=== PATIENT | female | born 1955 | race Caucasian/White ===

== ENCOUNTER 2021-07-20 11:59 | Emergency (ER) | payer OTHER, SELFPAY ==
[2021-07-20 12:00] VITALS: BP 192/116; PULSE 97; RESP 20; TEMP 37.2; O2SAT 96; BMI 22.2
[2021-07-20 12:30] VITALS: BP 155/87; PULSE 75; RESP 20; O2SAT 95
[2021-07-20 12:35] LABS: Basophils # 0.1 K/mm3 (0-0.2); Basophils % 0.7 % (0.1-2.0); Chloride 97 mmol/L (98-107); Eosinophils # 0.2 K/mm3 (0.0-0.4); Eosinophils % 2.7 % (0.1-12.0); Hematocrit 38.5 % (37.0-47.0); Lymphocytes # 2.1 K/mm3 (0.7-4.5); Mean Corpuscular HGB Conc 33.7 g/dL (31.8-35.4); Mean Corpuscular Volume 97.9 fl (81-99); Mean Platelet Volume 7.8 fl (7.4-10.4); Monocytes # 0.4 K/mm3 (0.1-1.0); Monocytes % 5.5 % (1.7-9.3); Neutrophils # 4.4 K/mm3 (1.8-7.8); Platelet Count 359 K/mm3 (142-424); Potassium 4.4 mmoL/L (3.5-5.1); Red Blood Count 3.93 M/mm3 (4.20-5.40); Sodium 128 mmol/L (136-145); White Blood Count 7.1 K/mm3 (4.8-10.8)
[2021-07-20 12:37] LABS: Alanine Aminotransferase 18 U/L (12-78); Alkaline Phosphatase 91 U/L (38-126); Anion Gap 12.4 mEq/L (5-15); Aspartate Amino Transferase 43 U/L (14-36); Bilirubin,Total 0.3 mg/dl (0.2-1.3); Blood Urea Nitrogen 7 mg/dl (7-17); Carbon Dioxide 23 mmol/L (22.0-30.0); Creatinine Clearance Estimated 42 mL/min (50-200); Estimated Glomerular Filt Rate 159 ml/min (>60); GFR (African American) 192 ML/MIN (>60); Lipase 97 U/L (23-300)
[2021-07-20 12:38] LABS: Albumin Level 4.3 g/dl (3.5-5.0); Albumin/Globulin Ratio 1.5 (1.1-1.8); Calcium 8.5 mg/dl (8.4-10.2); Globulin 2.8 g/dL (1.3-3.2); Glucose 113 mg/dl (74-100); Total Protein,Serum 7.1 g/dl (6.3-8.2)
--- NOTE | 2021-07-20 12:40 | HMH.EDABDPAI ---
ED Disposition Clinical Impression: Rectus sheath hematoma Qualifiers: Encounter type: initial encounter Qualified Code(s): S30.1XXA - Contusion of abdominal wall, initial encounter Disposition: Xfer Intermediate Care Fac Condition on Discharge: Serious Instructions: DI for Acute Abdominal Pain Referrals: Nadir Holguin MD [Primary Care Provider] - - Critical Care Critical Care Time: No Attestation: On 07/20/21, the high probability of a clinically significant, sudden or life threatening deterioration of the following system(s) required my full and direct attention, intervention and personal management. The time I documented below is in addition to time spent performing reported procedures but includes the following listed in this critical care notation. Medical Decision Making - Medical Records Medical records reviewed: Yes: I reviewed the patient's medical records. - Elmer Inquiry Pt receiving controlled substance: Yes Elmer was queried for this patient: Yes Reference #:: [id number] Risks and benefits of using a controlled substance: were discussed with pt by me Vital Signs: 07/20/21 12:00 07/20/21 12:30 07/20/21 13:00 Temperature 99.0 F Temperature Source Oral Pulse Rate 75 69 Pulse Rate [Left Radial] 97 H Respiratory Rate 20 20 20 Blood Pressure 155/87 H 132/80 Blood Pressure [Right Arm] 192/116 H Blood Pressure Mean 109 106 Blood Pressure Mean [Right Arm] 141 Blood Pressure Source [Right Arm] Automatic Cuff Blood Pressure Position [Right Arm] Sitting 02 Sat by Pulse Oximetry 96 95 95 Oxygen Delivery Method Room Air 07/20/21 13:45 Temperature Temperature Source Pulse Rate 77 Pulse Rate [Left Radial] Respiratory Rate Blood Pressure 192/116 H Blood Pressure [Right Arm] Blood Pressure Mean Blood Pressure Mean [Right Arm] Blood Pressure Source [Right Arm] Blood Pressure Position [Right Arm] 02 Sat by Pulse Oximetry 96 Oxygen Delivery Method - Lab Data Lab Results 07/20/21 12:15: WBC 7.1, RBC 3.93 L, Hgb 13.0, Hct 38.5, MCV 97.9, MCH 33.0 H, MCHC 33.7, RDW 13.0, Plt Count 359, MPV 7.8, Neut % (Auto) 62.0, Lymph % (Auto) 29.0, [place] % (Auto) 5.5, Eos % (Auto) 2.7, Baso % (Auto) 0.7, Neut # (Auto) 4.4, Lymph # (Auto) 2.1, [place] # (Auto) 0.4, Eos # (Auto) 0.2, Baso # (Auto) 0.1 07/20/21 12:15: Sodium 128 L, Potassium 4.4, Chloride 97 L, Carbon Dioxide 23, Anion Gap 12.4, BUN 7, Creatinine 0.40 L, Estimated Creat Clear 42, Estimated GFR 159, Est GFR ( Amer) 192, Glucose 113 H, Calcium 8.5, Total Bilirubin 0.3, AST 43 H, ALT 18, Alkaline Phosphatase 91, Troponin I < 0.01, Total Protein 7.1, Albumin 4.3, Globulin 2.8, Albumin/Globulin Ratio 1.5, Lipase 97 07/20/21 12:15: PT 11.4, INR 1.01, APTT 29.7 07/20/21 13:20: Urine Color Yellow, Urine Appearance Clear, Urine pH 6.0, Ur Specific [place] <= 1.005, Urine Protein Negative, Urine Glucose (UA) Negative, Urine Ketones Negative, Urine Blood 1+, Urine Nitrate Negative, Urine Bilirubin Negative, Urine Urobilinogen 0.2, Ur Leukocyte Esterase Negative, Urine RBC 3-5, Urine WBC Occasional, Ur Squamous Epith Cells 3-5, Urine Bacteria Trace 07/20/21 14:10: Lactate 1.2 Result diagrams: 07/20/21 12:15 07/20/21 12:15 Orders (Tests/Meds): ED MEDICATIONS Discontinued Medications Generic Name Dose Route Start Last Admin Trade Name Dipakq PRN Reason Stop Dose Admin Hydromorphone HCl 1 mg 07/20/21 14:56 07/20/21 15:05 Hydromorphone 2mg/Ml Syringe IV 07/20/21 14:57 1 mg ONCE ONE Administration Iopamidol 100 ml 07/20/21 13:28 07/20/21 13:29 Iopamidol-370 (76%);100ml Bottle IV 07/20/21 13:29 100 ml ONCE ONE Administration Morphine Sulfate 4 mg 07/20/21 12:08 07/20/21 12:18 Morphine 4mg/Ml Syringe IV 07/20/21 12:09 4 mg ONCE ONE Administration Morphine Sulfate 4 mg 07/20/21 13:00 07/20/21 13:07 Morphine 4mg/Ml Syringe IV 07/20/21 13:01 4 mg ONCE ONE Administration Ondansetro
[2021-07-20 12:54] LABS: Troponin I < 0.01 ng/ml (0.00-0.034)
[2021-07-20 13:00] VITALS: BP 132/80; PULSE 69; RESP 20; O2SAT 95
--- NOTE | 2021-07-20 13:01 | CT_ITS ---
FINAL REPORT TECHNIQUE: Pre-and postcontrast images of the abdomen and pelvis were performed by computed tomography. Extensive 3-D reconstruction images were performed. A CTA was performed. This study was performed with techniques to keep radiation doses as low as reasonably achievable (ALARA). Individualized dose reduction techniques using automated exposure control or adjustment of mA and/or kV according to the patient''s size were employed. 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 Precontrast images demonstrate no evidence of nephrolithiasis. No adrenal masses are identified. A small mass is seen in the left hepatic lobe which may represent cyst or hemangioma. There is a 14 mm mass of the lateral right kidney which does not appear to represent a simple cyst. Findings may represent complex cyst versus neoplasm. The spleen and pancreas are unremarkable. There is an acute left rectus hematoma measuring 11.5 x 9.3 x 5.5 cm without evidence of active bleeding. There are postoperative changes in the pelvis. CTA: The abdominal aorta is proper caliber. An SMA stent is in place. The celiac axis, and YING are patent. There is no significant stenosis or calcification. The renal arteries are patent bilaterally. Iliac arteries are unremarkable. IMPRESSION: Acute left rectus hematoma with active bleeding. These findings were discussed with Dr. Lyon, in the ER at 2:51 p.m. 14 mm mass lateral right kidney, not a simple cyst. Findings could represent complex cyst versus neoplasm. Recommend renal mass protocol CT or MRI for further evaluation. Reviewed, Interpreted and Dictated by Rafael Lima III, MD Transcribed by Samaria Payne Authenticated by Rafael Lima III, MD on 07/20/2021 03:18:12 PM [facility]
[2021-07-20 13:30] LABS: Microscopic, Urine URINE MICROSCOPIC (MICROSCOPIC)
[2021-07-20 13:31] LABS: Appearance,Urine CLEAR (Clear); Bilirubin,Urine Negative (Negative); Blood, Urine 1+ (Negative); Color,Urine YELLOW (Yellow); Glucose,Urine (UA) Negative (Negative); Ketones,Urine Negative (Negative); Leukocyte Esterase,Urine Negative (Negative); Nitrate,Urine Negative (Negative); Protein,Urine Negative (Negative); Specific Gravity, Urine <= 1.005 (1.005-1.030); Urobilinogen,Urine 0.2 EU/dl (0.2)
[2021-07-20 13:45] VITALS: BP 192/116; PULSE 77; O2SAT 96
[2021-07-20 13:47] LABS: Bacteria,Urine Trace /lpf; WBC,Urine Occasional #/hpf (0-3)
[2021-07-20 14:30] LABS: Lactic Acid 1.2 mmol/L (0.7-2.1)
--- NOTE | 2021-07-20 14:52 | PC.NURSE ---
ELENI calling for Dr Lyon
--- NOTE | 2021-07-20 15:07 | PC.NURSE ---
Radha Cheung, RN at
[2021-07-20 15:17] LABS: Activated Partial Thrombo Time 29.7 seconds (22.8-30.6); INR 1.01 (0.9-1.1); Prothrombin Time 11.4 seconds (10.1-12.5)
--- NOTE | 2021-07-20 15:57 | PC.NURSE ---
[facility] called, they will call back
--- NOTE | 2021-07-20 16:40 | PC.NURSE ---
ED MD on phone with MDs at this time
--- NOTE | 2021-07-20 17:36 | PC.NURSE ---
pt accepted at , Dr Griffiths
--- NOTE | 2021-07-20 17:37 | PC.NURSE ---
Requested for Rad to power share images to [facility]
--- NOTE | 2021-07-20 17:57 | PC.NURSE ---
REport given to Autumn Singletary RN [facility]
[2021-07-20 18:10] LABS: Coronavirus 19, PCR Not Detected (NotDetected); Influenza A, PCR Not Detected (NotDetected); Influenza B, PCR Not Detected (NotDetected)
[2021-07-20 18:26] VITALS: BP 101/77; PULSE 88; O2SAT 94
[2021-07-20 20:44] VITALS: BP 109/57; PULSE 88; RESP 20; TEMP 37.1; O2SAT 98
== END 2021-07-20 20:45 ==
PROVIDERS: Emergency Provider Emergency Medicine; PCP Internal Medicine Adolescent Medicine
DX: S30.1XXA Contusion of abdominal wall, initial encounter (principal); N28.89 Other specified disorders of kidney and ureter; Z20.822 Contact with and (suspected) exposure to COVID-19
CPT/HCPCS: 74174; 80053; 81001; 83605; 83690; 84484; 85025; 85610; 85730; 96374; 96375; 96376; 99285; C9803; J2405; Q9967; U0003; U0005

== ENCOUNTER → 2021-12-29 13:34 | Outpatient (POV) | payer OTHER, SELFPAY | PROVIDERS: Visit Provider Dermatology | DX: Z00.00 Encounter for general adult medical examination without abnormal findings (principal) ==

== ENCOUNTER → 2022-07-14 13:15 | Outpatient (CLI) | payer OTHER, MEDICARE, SELFPAY ==
--- NOTE | 2022-07-14 13:23 | XR_ITS ---
FINAL REPORT CLINICAL HISTORY: low back pain FINDINGS: THORACIC SPINE Two views were obtained. There is no acute fracture. There is a mild chronic T12 compression fracture. There is dextroscoliosis. There are moderate degenerative changes with osteophyte formation. There is no soft tissue abnormality. IMPRESSION: Mild chronic T12 compression fracture. Moderate degenerative changes with no acute bony abnormality. LUMBAR SPINE Five views of the lumbar spine were obtained. There is a moderate chronic L1 compression fracture. There is fusion at L4-5. There is no acute fracture. There is no malalignment. There is leftward curvature. There are mild and moderate degenerative changes. There is no soft tissue abnormality. IMPRESSION: Moderate chronic L1 compression fracture. Mild and moderate degenerative changes with no acute bony abnormality. Reviewed, Interpreted and Dictated by Rafael Lima III, MD Transcribed by Giselle Carr Authenticated and [facility]
== END ==
PROVIDERS: PCP Internal Medicine Adolescent Medicine; Visit Provider Internal Medicine Adolescent Medicine
DX: M54.50 Low back pain, unspecified (principal); M54.6 Pain in thoracic spine
CPT/HCPCS: 72084

== ENCOUNTER → 2022-09-28 12:42 | Outpatient (CLI) | payer OTHER, MEDICARE, SELFPAY ==
--- NOTE | 2022-09-28 12:54 | XR_ITS ---
FINAL REPORT CLINICAL HISTORY: FELL TUESDAY & RIB PAIN ON LEFT SIDE FINDINGS: A single view of the chest with 3 views of the left ribs were obtained. There is no acute cardiopulmonary process. No pneumothorax is identified. No acute fracture or dislocation is identified. There is mild dextroscoliosis of the thoracic spine, as well as prior cervical fusion instrumentation, a left shoulder arthroplasty, and lumbar orthopedic hardware. IMPRESSION: No acute process. Reviewed, Interpreted and Dictated by Rafael Lima III, MD Transcribed by Tatiana Sagastume Authenticated and . [facility]
--- NOTE | 2022-09-28 12:54 | XR_ITS ---
FINAL REPORT CLINICAL HISTORY: LEFT ARM PAIN FINDINGS: Two views left humerus: Two views of the left humerus reveal a shoulder arthroplasty. There is chronic calcification adjacent to the shoulder joint. No evidence of fracture or dislocation is seen. IMPRESSION: Shoulder arthroplasty with adjacent chronic calcification. No acute bony abnormality identified. Reviewed, Interpreted and Dictated by Rafael Lima III, MD Transcribed by Tatiana Sagastume Authenticated and [facility]
== END ==
PROVIDERS: PCP Internal Medicine Adolescent Medicine; Visit Provider Nurse Practitioner Family
DX: R07.81 Pleurodynia (principal); M79.602 Pain in left arm
CPT/HCPCS: 71101; 73060

== ENCOUNTER 2022-10-09 11:47 | Emergency (ER) | payer MEDICARE, SELFPAY ==
[2022-10-09 12:25] VITALS: BP 160/75; PULSE 80; RESP 20; TEMP 36.6; O2SAT 97; BMI 20.9
--- NOTE | 2022-10-09 12:45 | EXP.UTC ---
Discharge Plan Disposition Patient Disposition: Home, Self-Care Condition: Good Prescriptions Prescriptions: New cephalexin [cephalexin] 500 mg tablet 500 mg PO BID 7 Days Qty: 14 0RF Referrals Follow up/Referrals: Nadir Holguin MD [Primary Care Provider] - See instructions Activity Restrictions/Add. Instructions Additional Instructions/Restrictions: Increase fluids, water and not soda or tea. Can drink cranberry juice or cranberry extract. Wipe front to back Wear cotton underwear Empty bladder after intercourse Start antibiotics immediately and make sure you take the full course although you may start to see improvement over the next 48 hours. You can eat yogurt or take probiotics to decrease diarrhea or yeast infection caused by the antibiotic Be sure to follow-up anytime for new or worsening symptoms in 48 hours for wound urine culture results be sure to let you PCP no recent urine for culture so they can request records and ensure that you have appropriate antibiotic if you are not getting better or getting worse. If symptoms worsen or do not improve return or be seen in the ER. Follow-up with primary care this week. Clinical Impressions Clinical Impression: Acute UTI Instructions Patient Instructions: DI for Urinary Tract Infection (UTI) Discharge ED Provider: Virginie ([facility])[place] [facility] [place] General Stated complaint: blood in urine Mode of Arrival: Ambulatory Source of Information: Patient Limitations: No Limitations Time Seen by Provider: 10/09/22 12:45 Description of Symptoms (Recalled from Triage Doc. by RN): PATIENT C/O URINARY URGENCY THAT STARTED YESTERDAY AND BLOOD IN URINE THAT STARTED THIS MORNING. SHE ALSO REPORTS INTERMITTEN DIZZINESS THAT STARTED APPROX 1 MONTH AGO HEENT Symptoms (Recalled from RN notes): No Resp Symptoms (Recalled from RN notes): No Skin Symptoms (Recalled from RN notes): No MS Symptoms (Recalled from RN notes): No Functional Status (Recalled from RN notes): WNL History of Present Illness Provider Complaint: 67 yr old female presents for urinary freq, urgency, blood in urine and hesitancy that started this am Related Data Previous Rx's Medication Instructions Recorded cephalexin 500 mg tablet 500 mg PO BID 7 days #14 tabs 10/09/22 Allergies Allergy/AdvReac Type Severity Reaction Status Date / Time No Known Allergies Allergy Verified 07/22/22 13:09 Worker's Comp Is this a Worker's Comp case?: No [facility] Disclaimer: The information contained in this section may have been updated after the patient was seen, as this information can be updated by other users. 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: Never smoker alcohol intake: never substance use type: denies use current occupational status: disabled Travel in the last 8 weeks: None ROS Obtained: Yes All systems reviewed & no additional complaints except as documented Constitutional Constitutional: Reports system reviewed and no additional complaints, except as documented Eyes Eyes: Reports system reviewed and no additional complaints, except as documented ENT Ears, Nose, Mouth, and Throat: Reports system reviewed and no additional complaints, except as documented Cardiovascular Cardiovascular: Reports system reviewed and no additional complaints, except as documented Respiratory Respiratory: Reports system reviewed and no additional complaints, except as documented Gastrointestinal Gastrointestingal: Reports system reviewed and no additional complaints, except as documented Genitourinary Female Genitourinary: Reports system reviewed and no additional complaints, except as documented, Reports as per HPI, Reports dysuria, Reports hematuria, Reports urinary hesitancy and Reports urinary urgency Musculoskeletal Musculoskeletal: Reports system reviewed and no additional complaints, except as documented Integumentary/Breasts Skin/Breast: Reports syst
[2022-10-09 12:57] LABS: Microscopic, Urine URINE MICROSCOPIC (MICROSCOPIC)
[2022-10-09 12:58] LABS: Bilirubin,Urine 1+ (Negative); Blood, Urine 3+ (Negative); Glucose,Urine (UA) Negative (Negative); Ketones,Urine TRACE (Negative); Leukocyte Esterase,Urine 2+ (Negative); Nitrate,Urine Negative (Negative); Protein,Urine 1+ (Negative); Specific Gravity, Urine 1.015 (1.005-1.030); Urobilinogen,Urine 0.2 EU/dl (0.2)
[2022-10-09 12:59] LABS: Appearance,Urine Slightly Cloudy (Clear); Bacteria,Urine 1+ /lpf; Color,Urine Amber (Yellow)
[2022-10-09 13:04] VITALS: BP 160/75; PULSE 80; RESP 20; TEMP 36.6; O2SAT 97
== END 2022-10-09 13:14 | disposition home or self-care (01) ==
PROVIDERS: Emergency Provider Nurse Practitioner Family; PCP Internal Medicine Adolescent Medicine
DX: N39.0 Urinary tract infection, site not specified (principal); B96.29 Other Escherichia coli [E. coli] as the cause of diseases classified elsewhere
CPT/HCPCS: 81001; 87086; 87088; 87186; 99204; 99212; G0463